=== PATIENT | male | born 1955 | race African-American/Black ===

== ENCOUNTER 2017-03-05 12:25 | Emergency (ER) | payer BC ==
--- NOTE | 2017-03-05 13:05 | UC ---
Shoulder Pain HPI - HPI Summary HPI Summary: 61 yo gentleman c/o progressive L ant shoulder pain x approx last 2 days. Hurts periodically, seems worse with certain movements, but unable to attribute which exact movements. No p/d/w. No recent injury that he is aware of. Pain does sometimes extend up to neck area. Pt is an athlete, and is very active as a referee, and works out several days weekly. No recent illness or other pain at this time. - History of Current Complaint Chief Complaint: UCUpperExtremity Stated Complaint: SHOULDER INJURY Time Seen by Provider: 03/05/17 13:03 Hx Obtained From: Patient Onset/Duration: Gradual Onset, Lasting Days - Allergies/Home Medications Allergies/Adverse Reactions: Allergies Allergy/AdvReac Type Severity Reaction Status Date / Time No Known Allergies Allergy Verified 03/05/17 12:37 PMH/Surg Hx/FS Hx/Imm Hx Previously Healthy: Yes - hx R knee arthroscopy - Surgical History Surgical History: Yes Surgery Procedure, Year, and Place: Lt [facility]NEE - ARTHROSCOPIC - Family History Known Family History: Positive: Diabetes - mother's side - Social History Alcohol Use: None Substance Use Type: None Smoking Status (MU): Former Smoker Review of Systems Constitutional: Negative Skin: Negative Eyes: Negative ENT: Negative Respiratory: Negative Cardiovascular: Negative Gastrointestinal: Negative Genitourinary: Negative Motor: Other - see hpi Neurovascular: Negative Musculoskeletal: Arthralgia Neurological: Negative Psychological: Negative All Other Systems Reviewed And Are Negative: Yes Physical Exam Triage Information Reviewed: Yes Appearance: Well-Appearing - pain reproducible by pt with certain movements - forward extension, partial abduction., Well-Nourished Vital Signs: Initial Vital Signs Temp 98.3 F 03/05/17 12:33 Pulse 66 03/05/17 12:33 Resp 18 03/05/17 12:33 BP 124/81 03/05/17 12:33 Pulse Ox 100 03/05/17 12:33 Vital Signs Reviewed: Yes Eye Exam: Normal ENT Exam: Normal Neck exam: Normal - no point kwadwo tenderness. + mild spasm appreciated lower left neck, upper post shoulder Neck: Positive: Supple Respiratory Exam: Normal Cardiovascular Exam: Normal Abdominal Exam: Normal - no c/o's Musculoskeletal Exam: Other - see above Tender L ant shoulder, no crepitus. Ax nerve LT present. Distal R/U pulses palpable. Distal strength good. Able to move shoulder in all directions. Some discomfort with abduction and forward extension. Neurological Exam: Normal Psychological Exam: Normal Skin Exam: Normal Shoulder Course/Dx - Course Course Of Treatment: Declines shoulder sling. Reviewed xray and xray report, shoulder L. D/w Mr. Sanchez. He wishes to check in with his previous orthopedist. But if unable to see him, then will ask Dr. Hall for referral. Politely but firmly declines prescriptions or otc medications. But he may consider tumeric, glucosamine, and topical analgesic. Mr. Sanchez was given the opportunity to ask several questions, to which I answered to the best of my ability. - Differential Dx/Diagnosis Provider Diagnoses: osteoarthritis. L shoulder calcific tendonopathy Discharge - Discharge Plan Condition: Stable Disposition: HOME Patient Education Materials: Osteoarthritis (ED), Calcific Tendinitis (ED) Referrals: Joe Hall MD [Primary Care Provider] - Additional Instructions: Blood pressure 124/81. Follow up Dr. Hall 1-2 weeks. Follow up orthopedic surgeon 1-2 weeks. If you prefer to stay natural, consider Tumeric, consider Glucosamine chondroitin. Consider topical (on the skin) Arnica cream. Please seek medical attention for worse or new problems.
--- NOTE | 2017-03-05 14:10 | RAD ---
Indication: Multiple days LEFT anterior shoulder pain. Comparison: No relevant prior exams available on the [facility] [place]. Technique: Internal rotation AP, external rotation Grashey, scapular Y, axillary views LEFT shoulder Report: Normal acromioclavicular and glenohumeral joint alignment. Severe osteophytosis as well as subchondral sclerosis and cystic change at the acromioclavicular joint. Concave undersurface of the acromion process with inferior acromial bone spur. Mild osteophytosis at the glenohumeral joint without significant joint space narrowing. Negative for fracture. Potential calcific tendinopathy involving the infraspinatus tendon reference the scapular Y view. Unremarkable soft tissue contours. IMPRESSION: 1. Acromioclavicular and glenohumeral joint osteoarthritis. 2. Potential calcific tendinopathy of the rotator cuff.
[2017-03-05 14:41] VITALS: BP 136/90
== END 2017-03-05 14:45 | disposition home or self-care (01) ==
LOC: UCEAST 12:25
DX: M19.012 Primary osteoarthritis, left shoulder (principal); M75.32 Calcific tendinitis of left shoulder
CPT/HCPCS: 99211; G0463